=== PATIENT | male | born 1955 | race Caucasian/White ===

== ENCOUNTER 2018-11-10 08:46 | Day surgery (SDC) | payer MEDICARE ==
[~2018-11-10] VITALS: Ht 180.3 cm; Wt 91.3 kg
[~2018-11-10 08:46] MED LIST: ATOR20 PO; Bupropion HCl75 MG PO; CLON.5 PO; LOSA25 PO; Revatio20 MG PO; VITAMIN D35000 UNI1 PO
== END 2018-11-10 11:07 | disposition home or self-care (01) ==
LOC: ORSCSDS 08:46
PROVIDERS: Surgery
PROC: 0DBL8ZX Excision of Transverse Colon, Via Natural or Artificial Opening Endoscopic, Diagnostic (ICD-10-PCS; principal; 2018-11-10 10:00)
PROC: 0DBN8ZX Excision of Sigmoid Colon, Via Natural or Artificial Opening Endoscopic, Diagnostic (ICD-10-PCS; principal; 2018-11-10 10:00)
PROC: 0DBH8ZX Excision of Cecum, Via Natural or Artificial Opening Endoscopic, Diagnostic (ICD-10-PCS; principal; 2018-11-10 10:00)
DX: Z12.11 Encounter for screening for malignant neoplasm of colon (principal); D12.0 Benign neoplasm of cecum; D12.3 Benign neoplasm of transverse colon; D12.5 Benign neoplasm of sigmoid colon; K64.8 Other hemorrhoids; I10 Essential (primary) hypertension; G47.33 Obstructive sleep apnea (adult) (pediatric); Z87.891 Personal history of nicotine dependence; Z79.899 Other long term (current) drug therapy
CPT/HCPCS: 88305; J7120

== ENCOUNTER 2022-12-31 13:27 | Emergency (ER) | payer MEDICARE ==
[~2022-12-31] VITALS: Ht 180.3 cm; Wt 85.3 kg
[2022-12-31 14:00] LABS: BASOPHILS ABSOLUTE AUTO 0.08 K/mm3 (0.00-0.23); BASOPHILS PERCENT AUTO 1 % (0-2); EOSINOPHILS ABSOLUTE AUTO 0.28 K/mm3 (0.00-0.68); EOSINOPHILS PERCENT AUTO 3 % (0-6); Hematocrit 33.6 % (37.0-53.0); Hemoglobin 10.9 g/dL (13.5-17.5); IMMATURE GRAN ABSOLUTE AUTO 0.03 K/mm3 (0.00-0.10); IMMATURE GRAN PERCENT AUTO 0 % (0-1); LYMPHOCYTES PERCENT AUTO 25 % (21-46); MONOCYTES ABSOLUTE AUTO 0.79 K/mm3 (0.16-1.47); MONOCYTES PERCENT AUTO 9 % (4-13); Mean Corpuscular HGB 28.8 pg (26.0-34.0); Mean Corpuscular HGB Conc 32.4 g/dL (31.5-36.5); Mean Corpuscular Volume 89 fL (80-100); Mean Platelet Volume 10.7 fL (9.1-12.4); NEUTROPHILS PERCENT AUTO 62 % (41-73); Platelet Count 367 K/mm3 (150-400); RDW Coefficient Variation 14.1 % (11.7-14.2); Red Blood Cell Count 3.78 M/mm3 (4.30-5.90); White Blood Cell Count 8.88 K/mm3 (4.00-11.30)
[2022-12-31 14:18] LABS: Bun/Creatinine Ratio 39.4 (12.0-20.0); Calcium, Blood 8.8 mg/dL (8.5-10.1); Creatinine, Blood 0.66 mg/dL (0.60-1.20); Potassium, Blood 4.3 mmol/L (3.5-5.5)
[2022-12-31 14:22] LABS: Prothrombin Time Results 10.5 Sec (9.7-11.5)
[2022-12-31] MEDS ORDERED: Nexium40 MG PO (14:52)
== END 2022-12-31 16:22 | disposition home or self-care (01) ==
LOC: ER 13:27
PROVIDERS: Physician Assistant
DX: R04.0 Epistaxis (principal); I78.0 Hereditary hemorrhagic telangiectasia; Z79.899 Other long term (current) drug therapy
CPT/HCPCS: 80048; 85025; 85610; 99283; A9270